=== PATIENT | female | born 2000 ===

== ENCOUNTER 2023-01-31 11:47 | Emergency (ER) | payer BC, SELFPAY ==
--- NOTE | ~2023-01-31 | CT_ITS ---
EXAMINATION: CT abdomen pelvis wo con DATE: 01/31/2023 13:59 INDICATION: Right flank pain. TECHNIQUE: Computed tomography (CT) of the abdomen and pelvis was performed without intravenous contr ast. Automated exposure control and iterative reconstruction technique were employed. The dose-length product was 939.91 mGy-cm. COMPARISON: None. FINDINGS: There visualized portions of the lung bases demonstrate minimal atelectasis. No pleural eff usion. The heart size is normal. No pericardial effusion. The liver, spleen, gallbladder, pancreas, a drenal glands, and kidneys are normal. There is no urolithiasis. There are no dilated loops of bowel. The appendix normal. There are no pathologically enlarged lymph nodes. There is no free intraperiton eal fluid. The bones are unremarkable. IMPRESSION: 1. No etiology for the patient's symptoms. Reviewed, dictated and finalized at location A. CONTENT EDITOR
[2023-01-31 11:48] VITALS: BP 135/84; PULSE 110; RESP 18; TEMP 36.3; O2SAT 97
[2023-01-31 12:03] LABS: Basophils Percent Auto 0.5 % (0.2-1.2); Eosinophils Absolute Auto 0.5 K/mm3 (0-0.3); Eosinophils Percent Auto 5.4 % (0-4.4); Hematocrit 42.2 % (37.0-47.0); Hemoglobin 13.1 g/dL (12.0-15.0); Immature Granulocyte Absolute 0.03 K/mm3 (0.00-0.031); Immature Granulocyte Percent A 0.3 % (0-0.5); Lymphocytes Absolute Auto 1.73 K/mm3 (0.9-3.2); Lymphocytes Percent Auto 19.7 % (18.3-44.2); Mean Corpuscular Hemoglobin 25.8 pg (26-34); Mean Corpuscular Volume 83.1 fl (80-100); Mean Platelet Volume 10.6 fl (7.4-10.4); Monocytes Absolute Auto 0.5 K/mm3 (0.1-0.6); Neutrophils Percent Auto 68.1 % (45.5-73.1); Platelet Count Result 229 k/mm3 (150-375); Red Blood Count 5.08 M/mm3 (4.2-5.4); Red Cell Distribution Width 14.3 % (11.5-14.5); White Blood Count 8.8 K/mm3 (4.5-10.0)
[2023-01-31 12:14] LABS: Alanine Aminotransferase 29 U/L (6-35); Albumin Level 4.7 g/dL (3.5-5.1); Alkaline Phosphatase 86 U/L (38-126); Anion Gap 8 mmol/L (8-16); Aspartate Amino Transferase 39 U/L (14-36); Bilirubin,Total 0.5 mg/dL (0.2-1.3); Blood Urea Nitrogen 9 mg/dL (7-17); Carbon Dioxide 27 mmol/L (22-30); Chloride 105 mmol/L (98-107); Estimated CRCL calculation 107 ml/min; Estimated Glomerular Filt Rate > 60; Glucose 100 mg/dL (65-110); Potassium 4.3 mmol/L (3.4-5.0); Sodium 140 mmol/L (137-145)
[2023-01-31 12:22] LABS: Appearance Urine Turbid (Clear); Bacteria Urine 1+ /hpf; Bilirubin Urine Negative (Negative); Blood Urine Negative (Negative); Color Urine Yellow (Yellow); Glucose Urine UA Negative (Negative); Ketones Urine Trace mg/dL (Negative); Leukocyte Esterase Ur Trace LEU/UL (Negative); Nitrate Urine Negative (Negative); Non Pathogenic Casts 0-2; Protein Urine Negative (Negative); RBC Urine 0-2 /hpf (0-2); Specific Grav Ur 1.025 (1.001-1.035); Squamous Epithelial Cell Urine Few /hpf (Few); WBC Urine 0-5 /hpf
[2023-01-31 12:25] LABS: Add Urine Microscopic? YES
--- NOTE | 2023-01-31 13:49 | ED.GENADULT ---
HPI - General Adult General Chief complaint: Urogenital-Female Stated complaint: flank pain Time Seen by Provider: 01/31/23 13:04 History of Present Illness HPI narrative: 22-year-old female presenting to the emergency department for evaluation right flank pain. Patient states that the symptoms started this morning. Patient does report some pain with urination. Patient denies any blood in her urine. Patient does have a prior history of a urinary tract infection when she was in high school but denies any prior history of kidney stones. Related Data Allergies Allergy/AdvReac Type Severity Reaction Status Date / Time No Known Allergies Allergy Verified 01/31/23 12:58 Review of Systems Review of Systems: All systems reviewed & are unremarkable except as noted in HPI and below PMFSH Past Medical History Medical History Thyroid antibody positive Family History Family History Father Asthma Social History Social History (Updated 09/19/21 @ 09:22 by Angeli Hummel RI) Smoking status: Never smoker Alcohol intake: never Substance use: never Living arrangements: with family Occupation/Education: occupation Gender identity (if verbalized by the patient): Female Sexual Orientation (if Verbalized by the Patient): Straight or Heterosexual Spiritual care concerns: No Exam Narrative: APPEARANCE: Well appearing, no pain, no distress, well-nourished. HEAD: normocephalic, atraumatic. EYES: PERRLA/EOMI, conjunctivae clear. NOSE: Normal no drainage NECK: Supple. No adenopathy, no masses. RESPIRATORY: Airway patent, respirations nonlabored. Clear to auscultation bilaterally, no rales, rhonchi, wheezing. CARDIOVASCULAR: Regular rate and rhythm without murmurs rubs or gallops. ABDOMINAL: right CVA and right lower quadrant and suprapubic tenderness to palpation MUSCULOSKELETAL: Moves all extremities. Strength/ROM intact, No edema, No calf tenderness. NEURO: Alert. Cranial nerves II through XII intact. grossly intact SKIN: Warm, dry. Normal Color Course Course Emergency Course: 22-year-old female presenting ED for evaluation of flank pain. Patient did have some bacteria but also trace leuk esterase on the urinary analysis. CT was ordered to evaluate for underlying kidney stone. CT was negative for kidney stone and patient was treated with Rocephin for a suspected kidney infection. Patient was also discharged home with Keflex. Patient was updated results of the workup and plan for treatment. All questions concerns were addressed. Vital Signs Vital signs: Vital Signs Temperature 97.4 F L 01/31/23 11:48 Pulse Rate 110 H 01/31/23 11:48 Respiratory Rate 18 01/31/23 11:48 Blood Pressure 135/84 01/31/23 11:48 Pulse Oximetry 97 01/31/23 11:48 Oxygen Delivery Room Air 01/31/23 11:48 Temperature 97.4 F L 01/31/23 11:48 Pulse Rate 101 H 01/31/23 14:27 Respiratory Rate 16 01/31/23 14:27 Blood Pressure 132/84 01/31/23 14:27 Pulse Oximetry 99 01/31/23 14:27 Oxygen Delivery Room Air 01/31/23 11:48 Medical Decision Making Differential Diagnosis Differential Diagnosis: Kidney stone, urinary tract infection, colitis Vital Signs Vital Signs: Vital Signs Temperature 97.4 F L 01/31/23 11:48 Pulse Rate 110 H 01/31/23 11:48 Respiratory Rate 18 01/31/23 11:48 Blood Pressure 135/84 01/31/23 11:48 Pulse Oximetry 97 01/31/23 11:48 Oxygen Delivery Room Air 01/31/23 11:48 Temperature 97.4 F L 01/31/23 11:48 Pulse Rate 101 H 01/31/23 14:27 Respiratory Rate 16 01/31/23 14:27 Blood Pressure 132/84 01/31/23 14:27 Pulse Oximetry 99 01/31/23 14:27 Oxygen Delivery Room Air 01/31/23 11:48 Lab Data Lab results reviewed: Yes I reviewed the patient's lab results. 01/31/23 11:56 01/31/23 11:56 Labs
[2023-01-31 14:27] VITALS: BP 132/84; PULSE 101; RESP 16; O2SAT 99
--- NOTE | 2023-02-07 10:24 | PC.NURSE ---
LATE ENTRY This note is being entered to document information to the patient's record. The following information was omitted on [01/31/23], by [Sharifa Sharma RN]. Rocephin 1Gm infused at 1430.
== END 2023-01-31 14:28 | disposition home or self-care (01) ==
PROVIDERS: Emergency Provider Emergency Medicine; PCP Family Medicine
DX: N39.0 Urinary tract infection, site not specified (principal); R10.9 Unspecified abdominal pain
CPT/HCPCS: 36415; 74176; 80053; 81001; 81025; 85025; 96365; 99284; J0696

== ENCOUNTER 2024-01-15 09:41 | Outpatient (CLI) | payer BC, SELFPAY ==
--- NOTE | ~2024-01-15 | XR_ITS ---
XR sacroiliac joints min 3V Ordering provider: Alyson Jim PA-C History: . sciatica left side for 4 months no injury . Comparison: None. FINDINGS: BONES: No acute fracture or dislocation. JOINTS: The bilateral sacroiliac joint spaces appear well maintained. No bony fusion of the sacroilia c joints or bony erosions. SOFT TISSUES: Unremarkable. IMPRESSION: NO ACUTE OSSEOUS ABNORMALITY. NORMAL SACROILIAC JOINTS. Reviewed, dictated and finalized at location A. FIXING PLUMBER
--- NOTE | ~2024-01-15 | XR_ITS ---
3 VIEWS LUMBAR SPINE Ordering provider: Alyson Jim PA-C History: . sciatica left side for 4 months no injury . Comparison: None. FINDINGS: VERTEBRAL BODIES: No visible fracture or subluxation. DISK SPACES: Normal. SOFT TISSUES: Normal. IMPRESSION: No acute osseous abnormality lumbar spine. Reviewed, dictated and finalized at location A. GER IMMUNOLOGY
== END 2024-01-15 09:42 | disposition home or self-care (01) ==
LOC: MICIMG 09:42
PROVIDERS: PCP Physician Assistant Medical; Visit Provider Physician Assistant Medical
DX: M54.32 Sciatica, left side (principal)
CPT/HCPCS: 72100; 72202

== ENCOUNTER 2024-04-23 12:40 | Outpatient (CLI) | payer BC, OTHER, SELFPAY ==
--- OUTSIDE RECORDS SUMMARY | 2024-04-23 13:52 | XMS_ITS | Referral Summary ---
Author Organization [facility] [address] Address [address] [place] [id number] Phone Care Team Providers Care Fisher Trammel Net Name Role Phone Cholo Miranda MD Primary Care Provider Shmuel ARCHER MD, Valentín Borges. Unavailable [phone] Allergies No known active allergies Medications ondansetron ODT (ZOFRAN-ODT) 8 mg disintegrating tablet Take 8 mg by mouth every 6 hours. 8 Active Active Problems Problem Noted Date Diagnosed Date Encounter for long-term (current) use of medicat ions 11/29/2017 Arthralgia 10/30/2017 Assessment & Plan (10/30/2017 3:59 PM CDT): Joint swelling on exam with hx of pleuritic cp and possible psoriasis and hx of + kai. Will check labs, serologies and hand u/s and re-evaluate in [address] auguste. Positive KAI (antinuclear antibody) 10/30/2017 Overview (11/05/2017): 1:80 speckled (10/07/17) per pcp Assessment & Plan (10/30/2017 3:58 PM CDT): Check serologies. Dorsalgia 10/30/2017 Assessment & Plan (10/30/2017 3:58 PM CDT): Having t and l spien pain and hip pain, will xray t, l spine and si joints along with bilat hips. Check [id number]. Other fatigue 10/30/2017 Assessment & Plan (10/30/2017 3:58 PM CDT): Check tsh. Does not sleep well. Bilateral hip pain 10/30/2017 Assessment & Plan (10/30/2017 3:58 PM CDT): Check bilat hip xrays. Chronic pain of both shoulders 10/30/2017 Assessment & Plan (10/30/2017 4:00 PM CDT): Check bilat shoulder xrays. Will consider PT. Rash 10/30/2017 Assessment & Plan (10/30/2017 4:01 PM CDT): Advised to see derm if rash reappears. Social History Tobacco Use Types Packs/Day Years Used Date Smoking Tobacco: Never Assessed Personal Safety Answer Date Recorded Getting School Help Needed Not on file 01/31 Comments Unknown Sex and Gender Information Value Date Recorded Sex Assigned at Not on file Legal Sex Female 11:13 AM CDT Gender Identity Not on file Sexual Orientation Not on file Last Filed Vital Signs Vital Sign Reading Time Taken Comments Blood Pressure 112/72 11/29/2017 3:10 PM CDT Pulse 89 11/29/2017 3:10 PM CDT Temperature - - Respiratory Rate - - Oxygen Saturation - - Inhaled Oxygen Concentration - - Weight 80.7 kg (178 lb) 11/29/2017 3:10 PM CDT Height - - Body Mass Index - - Plan of Treatment Not on file Insurance [facility] RO[employer] EPO Jeeves OOS Care Teams Fisher Trammel Net Relationship Specialty Start Date End Date Cholo Miranda MD [address] [facility] [address] [place] [address] PCP - General Family Medicine 10/11/17 Valentín Mi III, MD [address] [place] [address] Consulting Physician Rheumatology 10/11/17
--- OUTSIDE RECORDS SUMMARY | 2024-04-23 13:52 | XMS_ITS | Clinical Summary ---
Author Organization [facility] [address] Address [address] [place] [id number] Phone Care Team Providers Care Rn Postpartum Name Role Phone Cholo Miranda MD Primary Care Provider Shmuel ARCHER MD, Akash. Unavailable [phone] Allergies No known active allergies Medications ondansetron [...] Plan of Treatment Not on file Insurance [facility] [employer] EPO flikdate OOS Care Teams Rn Postpartum Relationship Specialty Start Date End Date Cholo Miranda MD [address] [facility] [address] [place] [address] PCP - General Family Medicine 10/11/17 Valentín Mi III, MD [address] [place] [address] Consulting Physician Rheumatology 10/11/17
[2024-04-23 13:59] LABS: SARS-CoV-2 RNA PCR Negative (Negative)
== END 2024-04-23 12:41 | disposition home or self-care (01) ==
LOC: ANHLAB 12:42
PROVIDERS: PCP Family Medicine; Visit Provider Physician Assistant Medical
DX: R05.9 Cough, unspecified (principal); J02.9 Acute pharyngitis, unspecified
CPT/HCPCS: 87635